=== PATIENT | male | born 1965 | race Caucasian/White ===

== ENCOUNTER 2019-10-22 23:34 | Emergency (ER) | payer OTHER ==
[~2019-10-22] VITALS: Ht 167.6 cm; Wt 65.0 kg
[~2019-10-22 23:34] MED LIST: ESCI20TA10 PO; IBUP-1623 PO; METF500T17 PO
--- NOTE | 2019-10-23 01:30 | NUR ---
PATIENT SLEEPING, RESPIRATIONS EVEN AND UNLABORED. VSSDIOGENESN. PLACED ON 2L NCDUE TO DESAT WHILE SLEEPING.CALL LIGHT AND URINAL IN REACH
[2019-10-23 02:16] LABS: BASOPHILS # (AUTO) 0.02 x10^3/uL (0-0.1); BASOPHILS % (AUTO) 0 % (0-1); EOSINOPHILS # (AUTO) 0.04 x10^3/uL (0-0.4); EOSINOPHILS % (AUTO) 1 % (1-7); LYMPHOCYTES # (AUTO) 1.44 x10^3/uL (1-3.4); LYMPHOCYTES % (AUTO) 30 % (22-44); MD NO; MEAN CORPUSCULAR HEMOGLOBIN 29.1 pg (27.5-34.5); MEAN CORPUSCULAR HGB CONC 30.8 g/dL (33.2-36.2); MEAN CORPUSCULAR VOLUME 94.3 fL (81-97); MEAN PLATELET VOLUME 7.2 fL (7.4-10.4); MONOCYTES # (AUTO) 0.39 x10^3/uL (0.2-0.8); MONOCYTES % (AUTO) 8 % (2-9); NEUTROPHILS % (AUTO) 61 % (42-75); PLATELET COUNT 159 x10^3/uL (130-400); RED BLOOD COUNT 3.71 x10^6/uL (4.38-5.82); RED CELL DISTRIBUTION WIDTH 14.3 % (9.4-14.8)
[2019-10-23 02:25] LABS: ALBUMIN 3.1 g/dL (3.4-5.0); ANION GAP 11 mmol/L (5-15); CALCIUM 7.8 mg/dL (8.5-10.1); CHLORIDE 99 mmol/L (98-107); CREATININE 0.73 mg/dL (0.7-1.3)
--- NOTE | 2019-10-23 02:29 | NUR ---
PATIENT SLEEPING, RESPIRATIONS EVEN AND UNLABORED. VSS, NADN. CALL LIGHT AND URINAL IN REACH
[2019-10-23 02:33] LABS: SALICYLATE LEVEL < 1.7 mg/dL (2.8-20.0)
--- NOTE | 2019-10-23 02:44 | NUR ---
REPORT GIVEN TO TUSHAR JHAVERI WHO IS TO ASSUME CARE OF THIS PATIENT AT THIS TIME.
--- NOTE | 2019-10-23 03:04 | NUR ---
[place] RN: urine sample obtained and sent to lab.
[2019-10-23 03:16] LABS: MICROSCOPIC AUTO
[2019-10-23 03:24] LABS: AMPHETAMINE SCREEN, URINE Negative (Negative); BARBITURATE SCREEN, URINE Negative (Negative); BENZODIAZEPINE SCREEN, URINE Negative (Negative); CANNABINOID SCREEN, URINE Negative (Negative); COCAINE SCREEN, URINE Negative (Negative); METHADONE SCREEN, URINE Negative (Negative); OPIATE SCREEN, URINE Negative (Negative)
[2019-10-23] MEDS ORDERED: POTASSIUM CHLORIDE 20 MEQ TAB.ER.PRT PO ONE (04:00)
[2019-10-23 04:03] VITALS: BP 101/57
--- NOTE | 2019-10-23 04:30 | NUR ---
Provided pt with snack and drink. Ambulated to bathroom independently, slow/steady gait. Answering questions appropriately. Pt states he would like to go home
--- NOTE | 2019-10-23 04:58 | NUR ---
ED staff provided pt with cab voucher and additional snacks. Ambulated out of department independently. Remains upset re: of yesterday, denies SI/HI.
== END 2019-10-23 05:17 | disposition home or self-care (01) ==
LOC: ED 10-23 04:45
DX: F10.120 Alcohol abuse with intoxication, uncomplicated (principal); D53.9 Nutritional anemia, unspecified; E11.9 Type 2 diabetes mellitus without complications; Z72.9 Problem related to lifestyle, unspecified; Y90.0 Blood alcohol level of less than 20 mg/100 ml
CPT/HCPCS: 36415; 80048; 80307; 81001; 82040; 85025; 99285